=== PATIENT | female | born 1970 | race Caucasian/White ===

== ENCOUNTER 2017-06-30 14:58 | Emergency (ER) | payer OTHER ==
[~2017-06-30] VITALS: Ht 160 cm; Wt 72.6 kg
[2017-06-30 15:01] VITALS: Ht 160 cm; Wt 72.6 kg
[2017-06-30 16:09] VITALS: BP 153/107
== END 2017-06-30 16:09 | disposition home or self-care (01) ==
LOC: ED 14:58
DX: M43.6 Torticollis (principal); G43.909 Migraine, unspecified, not intractable, without status migrainosus; Z88.6 Allergy status to analgesic agent
CPT/HCPCS: J3010

== ENCOUNTER 2017-10-16 17:33 | Emergency (ER) | payer OTHER ==
[~2017-10-16] VITALS: Ht 160 cm; Wt 70.8 kg
[2017-10-16 17:44] VITALS: Ht 160 cm; Wt 70.8 kg
[2017-10-16 19:35] LABS: BASOPHIL % 0.3 % (0-2); PLATELET COUNT 260 x10^3mcL (130-400); RED CELL DISTRIBUTION WIDTH 13.2 % (11.5-14.5)
[2017-10-16 19:52] LABS: CALCIUM 9.1 mg/dL (8.5-10.1); CARBON DIOXIDE 25.5 mmol/L (21-32); CHLORIDE SERUM 103 mmol/L (98-107); CREATININE SERUM 0.6 mg/dL (0.6-1.0); GFR1 > 60 mL/min; GLUCOSE SERUM 97 mg/dL (74-106); POTASSIUM SERUM 3.7 mmol/L (3.5-5.1); SODIUM SERUM 140 mmol/L (136-145)
[2017-10-16 20:05] LABS: ALBUMIN 4.2 g/dL (3.4-5.0); ALKALINE PHOSPHATASE 64 U/L (46-116); ALT/SGPT 22 U/L (14-59); AST/SGOT 17 U/L (15-37); BILIRUBIN TOTAL 0.24 mg/dL (0.20-1.00); TOTAL PROTEIN, SERUM 7.6 g/dL (6.4-8.2)
== END 2017-10-16 20:47 | disposition home or self-care (01) ==
LOC: ED 17:33
PROVIDERS: Emergency Medicine
DX: R21 Rash and other nonspecific skin eruption (principal); Z88.6 Allergy status to analgesic agent
CPT/HCPCS: 36415; J1100

== ENCOUNTER → 2017-10-20 | Outpatient (CLI) | payer OTHER ==
[2017-10-20 09:14] LABS: BASOPHIL % 0.3 % (0-2); PLATELET COUNT 365 x10^3mcL (130-400); RED CELL DISTRIBUTION WIDTH 12.7 % (11.5-14.5)
[2017-10-20 09:50] LABS: T3 TOTAL 0.79 ng/mL
[2017-10-20 10:45] LABS: ALBUMIN 4.7 g/dL (3.4-5.0); ALKALINE PHOSPHATASE 69 U/L (46-116); ALT/SGPT 24 U/L (14-59); AST/SGOT 12 U/L (15-37); BILIRUBIN TOTAL 0.4 mg/dL (0.20-1.00); CALCIUM 9.1 mg/dL (8.5-10.1); CARBON DIOXIDE 25.3 mmol/L (21-32); CHLORIDE SERUM 102 mmol/L (98-107); CREATININE SERUM 0.7 mg/dL (0.6-1.0); GFR1 > 60 mL/min; GLUCOSE SERUM 104 mg/dL (74-106); POTASSIUM SERUM 3.6 mmol/L (3.5-5.1); SODIUM SERUM 137 mmol/L (136-145)
[2017-10-20 10:46] LABS: TOTAL PROTEIN, SERUM 8.5 g/dL (6.4-8.2)
[2017-10-20 10:57] LABS: FREE T4 1.12 ng/dL (0.76-1.46); FREE THYROXINE INDEX 3.6 ug/dL (1.4-4.5); T4(THYROXINE) 10.2 ug/dL (4.7-13.3)
== END | disposition home or self-care (01) ==
LOC: LB 08:21
PROVIDERS: Family Medicine
DX: L23.9 Allergic contact dermatitis, unspecified cause (principal)
CPT/HCPCS: 82652; 84439; 86003

== ENCOUNTER → 2017-11-17 | Outpatient (CLI) | payer OTHER ==
[2017-11-17 09:50] LABS: CHOLESTEROL/HDL RATIO 2.6
== END | disposition home or self-care (01) ==
LOC: LB 08:31
DX: L80 Vitiligo (principal); G43.909 Migraine, unspecified, not intractable, without status migrainosus

== ENCOUNTER → 2018-02-08 | Outpatient (CLI) | payer OTHER ==
[2018-02-08 10:02] LABS: BASOPHIL % 0.2 % (0-2); PLATELET COUNT 250 x10^3mcL (130-400); RED CELL DISTRIBUTION WIDTH 13.4 % (11.5-14.5)
[2018-02-08 10:29] LABS: ALBUMIN 4.1 g/dL (3.4-5.0); ALKALINE PHOSPHATASE 60 U/L (46-116); AST/SGOT 15 U/L (15-37); BILIRUBIN TOTAL 0.43 mg/dL (0.20-1.00); CALCIUM 9.3 mg/dL (8.5-10.1); CARBON DIOXIDE 28.9 mmol/L (21-32); CHLORIDE SERUM 102 mmol/L (98-107); CHOLESTEROL 182 mg/dL (<200); CREATININE SERUM 0.7 mg/dL (0.6-1.0); FREE T4 1.05 ng/dL (0.76-1.46); GFR1 > 60 mL/min; GLUCOSE SERUM 90 mg/dL (74-106); POTASSIUM SERUM 3.7 mmol/L (3.5-5.1); SODIUM SERUM 136 mmol/L (136-145); TOTAL PROTEIN, SERUM 7.8 g/dL (6.4-8.2); TRIGLYCERIDES 85 mg/dL (<150)
[2018-02-08 10:41] LABS: CHOLESTEROL/HDL RATIO 2.9; HDL CHOLESTEROL 63 mg/dL (40-60)
[2018-02-08 10:55] LABS: ALT/SGPT 21 U/L (14-59); AMPHETAMINE QUAL UR NONE DETECTED (See below)
== END | disposition home or self-care (01) ==
LOC: LB 09:10
PROVIDERS: Anesthesiology Pain Medicine
DX: E27.40 Unspecified adrenocortical insufficiency (principal); G89.4 Chronic pain syndrome; M47.12 Other spondylosis with myelopathy, cervical region; M79.1 Myalgia
CPT/HCPCS: 82024; 84305; 84439

== ENCOUNTER → 2018-04-11 | Outpatient (CLI) | payer OTHER | END | disposition home or self-care (01) | LOC: MA 04-03 14:00 → LB 11:01 → MA 11:01 | DX: Z01.411 Encounter for gynecological examination (general) (routine) with abnormal findings (principal) | CPT/HCPCS: 77066 ==

== ENCOUNTER → 2018-07-31 | Outpatient (CLI) | payer OTHER ==
[2018-07-31 11:09] LABS: AMPHETAMINE QUAL UR NONE DETECTED (See below)
== END | disposition home or self-care (01) ==
LOC: LB 10:13
PROVIDERS: Anesthesiology Pain Medicine
DX: G89.4 Chronic pain syndrome (principal)

== ENCOUNTER → 2018-10-23 | Outpatient (CLI) | payer OTHER ==
[2018-10-23 11:38] LABS: AMPHETAMINE QUAL UR NONE DETECTED (See below)
== END | disposition home or self-care (01) ==
LOC: LB 10:07
PROVIDERS: Anesthesiology Pain Medicine
DX: G89.4 Chronic pain syndrome (principal)

== ENCOUNTER → 2019-04-17 | Outpatient (CLI) | payer OTHER ==
[2019-04-17 12:15] LABS: AMPHETAMINE QUAL UR NONE DETECTED (See below)
== END | disposition home or self-care (01) ==
LOC: LB 11:39
DX: G89.4 Chronic pain syndrome (principal); M47.12 Other spondylosis with myelopathy, cervical region

== ENCOUNTER → 2019-11-11 | Outpatient (CLI) | payer OTHER ==
[2019-11-11 15:42] LABS: AMPHETAMINE QUAL UR NONE DETECTED (See below)
== END | disposition home or self-care (01) ==
LOC: LB 13:33
DX: G89.4 Chronic pain syndrome (principal); M47.12 Other spondylosis with myelopathy, cervical region

== ENCOUNTER → 2020-01-09 | Outpatient (CLI) | payer OTHER ==
[2020-01-09 13:47] LABS: AMPHETAMINE QUAL UR NONE DETECTED (See below)
== END | disposition home or self-care (01) ==
LOC: MI 08:36
PROC: BR30ZZZ Magnetic Resonance Imaging (MRI) of Cervical Spine (ICD-10-PCS; principal; 2020-01-09)
DX: M54.2 Cervicalgia (principal)

== ENCOUNTER → 2020-04-30 | Outpatient (CLI) | payer OTHER | END | disposition home or self-care (01) | LOC: LB 11:58 | DX: G89.4 Chronic pain syndrome (principal) ==

== ENCOUNTER → 2020-05-18 | Outpatient (CLI) | payer OTHER ==
[2020-05-18 08:29] LABS: BASOPHIL % 1.1 % (0-2); CALCIUM 8.7 mg/dL (8.5-10.1); CHLORIDE SERUM 100 mmol/L (98-107); CREATININE SERUM 0.7 mg/dL (0.6-1.0); GFR1 > 60 mL/min; GLUCOSE SERUM 101 mg/dL (74-106); PLATELET COUNT 310 x10^3mcL (130-400); POTASSIUM SERUM 3.7 mmol/L (3.5-5.1); RED CELL DISTRIBUTION WIDTH 13.3 % (11.5-14.5); SODIUM SERUM 140 mmol/L (136-145)
[2020-05-18 08:42] LABS: ALBUMIN 4.1 g/dL (3.4-5.0); ALKALINE PHOSPHATASE 61 U/L (46-116); ALT/SGPT 15 U/L (14-59); AST/SGOT 15 U/L (15-37); BILIRUBIN TOTAL 0.38 mg/dL (0.20-1.00); CHOLESTEROL 187 mg/dL (<200); CHOLESTEROL/HDL RATIO 3.2; HDL CHOLESTEROL 59 mg/dL (40-60); TOTAL PROTEIN, SERUM 7.8 g/dL (6.4-8.2); TRIGLYCERIDES 74 mg/dL (<150)
== END | disposition home or self-care (01) ==
LOC: LB 07:53
PROVIDERS: ATTEND Family Medicine
DX: Z00.00 Encounter for general adult medical examination without abnormal findings (principal); R51.9 Headache, unspecified; Z80.9 Family history of malignant neoplasm, unspecified

== ENCOUNTER 2020-05-31 10:23 | Emergency (ER) | payer OTHER ==
[~2020-05-31] VITALS: Ht 165.1 cm; Wt 67.1 kg
[2020-05-31 10:37] VITALS: Ht 165.1 cm; Wt 67.1 kg
[2020-05-31 12:40] VITALS: BP 152/86
== END 2020-05-31 12:35 | disposition home or self-care (01) ==
LOC: ED 10:23
DX: G43.909 Migraine, unspecified, not intractable, without status migrainosus (principal); G89.29 Other chronic pain; R11.0 Nausea; Z88.6 Allergy status to analgesic agent
CPT/HCPCS: J2270; Q0162

== ENCOUNTER → 2020-09-22 | Outpatient (CLI) | payer OTHER | END | disposition home or self-care (01) | LOC: LB 10:24 | DX: Z00.00 Encounter for general adult medical examination without abnormal findings (principal) ==